=== PATIENT | female | born 1980 | race African-American/Black ===

== ENCOUNTER 2016-11-14 09:31 | Emergency (ER) | payer MEDICARE, OTHER ==
[~2016-11-14 09:31] MED LIST: SEROQUEL PO
== END 2016-11-14 11:10 | disposition home or self-care (01) ==
LOC: ER 09:31
DX: M72.2 Plantar fascial fibromatosis (principal); F17.200 Nicotine dependence, unspecified, uncomplicated; Z88.8 Allergy status to other drugs, medicaments and biological substances
CPT/HCPCS: 96372; 99284

== ENCOUNTER → 2016-12-12 14:30 | Emergency (ER) | payer MEDICARE, OTHER | END | disposition home or self-care (01) | LOC: ER 14:30 | DX: R25.2 Cramp and spasm (principal); F17.200 Nicotine dependence, unspecified, uncomplicated; Z88.8 Allergy status to other drugs, medicaments and biological substances; Z79.899 Other long term (current) drug therapy | CPT/HCPCS: 99283 ==

== ENCOUNTER 2017-02-06 22:03 | Emergency (ER) | payer MEDICARE, OTHER | END 2017-02-07 00:32 | disposition home or self-care (01) | LOC: ER 22:03 | DX: K02.9 Dental caries, unspecified (principal); F17.200 Nicotine dependence, unspecified, uncomplicated; Z98.890 Other specified postprocedural states; Z88.8 Allergy status to other drugs, medicaments and biological substances; Z79.899 Other long term (current) drug therapy | CPT/HCPCS: 99282 ==

== ENCOUNTER 2017-02-10 06:09 | Emergency (ER) | payer MEDICARE, OTHER | END 2017-02-10 06:33 | disposition home or self-care (01) | LOC: ER 06:09 | DX: M54.6 Pain in thoracic spine (principal); F17.200 Nicotine dependence, unspecified, uncomplicated; Z88.8 Allergy status to other drugs, medicaments and biological substances | CPT/HCPCS: 71010; 99284 ==

== ENCOUNTER 2017-03-02 22:00 | Emergency (ER) | payer MEDICARE, OTHER ==
[2017-03-03 03:49] LABS: BASOPHILS 0.3 %; BASOPHILS ABSOLUTE 0.03 10/3/uL (0.0-0.16); EOSINOPHILS ABSOLUTE 0.71 10/3/uL (0.0-0.53); IMMATURE GRANULOCYTES 0.3 %; IMMATURE GRANULOCYTES ABSOLUTE 0.03 10/3/uL (0.0-0.11); LYMPHOCYTES 38.6 %; LYMPHOCYTES ABSOLUTE 3.45 10/3/uL (0.67-4.30); MEAN CORPUS HGB CONC 34.6 g/dL (32.0-36.0); MEAN CORPUSCULAR HEMOGLOB 31.9 pg (26.0-34.0); MEAN PLATELET VOLUME 8.9 fL (9.2-13.0); MONOCYTES 8.1 %; MONOCYTES ABSOLUTE 0.72 10/3/uL (0.21-1.20); NEUTROPHILS 44.7 %; NEUTROPHILS ABSOLUTE 3.99 10/3/uL (2.02-8.40); PLATELET COUNT 282 10/3/uL (150-400); RBC DISTRIBUTION WIDTH 14.1 % (12.0-16.0); WHITE BLOOD CELLS 8.9 10/3/uL (4.5-10.5)
[2017-03-03 03:52] LABS: HEMOGLOBIN 12.1 g/dL (12.0-16.0); MANUAL DIFF NO %; MEAN CORPUSCULAR VOLUME 92.3 fL (80-100); RED CELL COUNT 3.79 10/6/uL (4.0-5.6)
[2017-03-03 04:04] LABS: CALCIUM, SERUM 8.2 MG/DL (8.5-10.4); CHLORIDE, SERUM 109 MMOL/L (96-112); CREATININE 0.95 MG/DL (0.55-1.02); GFR AFRICAN AMERICAN 89 ML/MIN (>=60); GFR NON AFRICAN AMERICAN 77 ML/MIN (>=60); GLUCOSE, SERUM 112 MG/DL (60-99); SODIUM, SERUM 145 MMOL/L (135-148)
[2017-03-03 04:05] LABS: BUN (BLOOD UREA NITROGEN) 12 MG/DL (6-23); CO2 (CARBON DIOXIDE) 29 MMOL/L (24-34); POTASSIUM, SERUM 3.5 MMOL/L (3.5-5.3)
[2017-03-03 04:40] LABS: SED RATE 7 MM/HR (0-20)
== END 2017-03-03 01:27 | disposition home or self-care (01) ==
LOC: ER 22:00
PROVIDERS: Nurse Practitioner
DX: R51 Headache (principal); F17.200 Nicotine dependence, unspecified, uncomplicated; Z88.8 Allergy status to other drugs, medicaments and biological substances; Z79.899 Other long term (current) drug therapy
CPT/HCPCS: 80048; 84703; 85025; 85652; 96372; 99284; J1885